=== PATIENT | male | born 1990 | race Caucasian/White ===

== ENCOUNTER 2021-04-09 12:43 | Emergency (ER) | payer OTHER ==
[~2021-04-09] VITALS: Ht 185.4 cm; Wt 95.5 kg
[2021-04-09] MEDS ORDERED: ACETAMINOPHEN TAB 650MG DOSE (2X325MG) PO ONE (18:00)
[2021-04-09] MEDS ORDERED: KETOROLAC 30 MG/ML 1ML VIAL IM ONE (18:00)
[2021-04-09] MEDS ORDERED: CYCL-707 PO (18:28)
[2021-04-09] MEDS ORDERED: KETO10TAB PO (18:28)
[2021-04-09 18:36] VITALS: BP 119/62
== END 2021-04-09 19:11 | disposition home or self-care (01) ==
LOC: M ED 12:43
DX: S39.012A Strain of muscle, fascia and tendon of lower back, initial encounter (principal); M54.16 Radiculopathy, lumbar region; X50.0XXA Overexertion from strenuous movement or load, initial encounter; Y92.9 Unspecified place or not applicable; Y93.9 Activity, unspecified; Y99.9 Unspecified external cause status; F17.200 Nicotine dependence, unspecified, uncomplicated
CPT/HCPCS: 96372; 99283; J1885